=== PATIENT | male | born 1975 | race Caucasian/White ===

== ENCOUNTER 2016-11-06 06:55 | Day surgery (SDC) | payer BC ==
[~2016-11-06] VITALS: Ht 167.6 cm; Wt 80.3 kg
--- NOTE | ~2016-11-06 | OR ---
PATIENT'S NAME: MICHAEL DONAHUE [facility] AGE: 41 Y [address] ROOM: [address] [address] LOCATION: [facility] ADMIT DATE: 11/06/2016 OR/Procedure Report DISCHARGE DATE: FAMILY PHYSICIAN: Nimco Everett APRN ATTENDING PHYSICIAN: Jose Langford SURGEON: Jose Langford MD [employer] OPERATOR: DATE OF PROCEDURE: 11/06/2016 PREOPERATIVE DIAGNOSES: 1. C4-C5 disk herniation. 2. C5-C6 disc herniation. POSTOPERATIVE DIAGNOSES: 1. C4-C5 disk herniation. 2. C5-C6 disc herniation. OPERATION PROPOSED AND PERFORMED: 1. C4-C5 microdiskectomy. 2. C5-C6 microdiskectomy. 3. C4-C5 fusion. 4. C5-C6 fusion. 5. Allografts. 6. Instrumentation/plating using the Inion absorbable plate. 7. Microscope. 8. Fluoroscopy with interpretation. DESCRIPTION OF PROCEDURE: Under general anesthesia, the patient was positioned supine. The neck was slightly extended and the neck and upper chest were prepped and draped in the usual fashion. Next, a curvilinear incision was carried out extending from the anterior border of the sternomastoid muscle to the midline. The platysma was incised along this line. We then continued our dissection in the plane between the sternomastoid muscle and the strap muscles working medial to the carotid sheath and retracting the strap muscles, esophagus, and trachea away from the midline. This got us to the prevertebral fascia, which we cauterized and incised getting us to the vertebral bodies and disc spaces. Next, two spinal needles were placed in adjacent disc spaces. Fluoroscopy was then brought in with the aid of the fluoroscopy. We were able to determine that we were at the C5-C6 and C6-C7 level, removed the needle at the C6-C7 level, put it out at the C4- C5 level. What we thought was the C4-C5 level and with fluoroscopy, we were able to determine that this was the correct level. The C4-C5 and C5-C6 levels were marked by making incisions into the disc spaces. Next, the longus colli muscles were dissected away from their attachments to the vertebral bodies and the golf course designer self-retaining retractor was then used for retraction. Next, PATIENT'S NAME: MICHAEL DONAHUE [facility] AGE: 41 Y [address] ROOM: [address] [address] LOCATION: [facility] ADMIT DATE: 11/06/2016 OR/Procedure Report DISCHARGE DATE: FAMILY PHYSICIAN: Nimco Everett APRN ATTENDING PHYSICIAN: Jose Langford the distraction rods were then screwed on the C4, C5, and C6 vertebral bodies. The incision into the disc spaces were then lengthened and we took out as much disc as we could grossly. Next, the microscope was brought in. Prior to bringing the microscope, we went ahead and distracted the C5-C6 disc space and with the aid of the microscope, we completely removed the disk, removed the cartilaginous endplates, and also the posterior longitudinal ligament thus exposing the dura. There was no free fragment of disk material extruded, however, there were prominent osteophytes, which we removed using the Kerrison rongeur's. After this was done, we put in a piece of Gelfoam soaked in thrombin. The distraction was released. We then paid attention to the C5-C6 level. We carried out a similar procedure at this level and the findings were similar and after this had been done at the C5-C6 level, we went ahead and used the allograft sizer to get the appropriate size graft and put in a 7 mm height allograft, which we tapped into now empty disc space after obtaining hemostasis by using the Gelfoam and patties soaked in thrombin. Next, similar thing was then done with the C4-C5 level, distracted the disk space, measured the disc height and used the 6 mm allograft for this level. After that was done, the distraction was released. The distraction rods were removed. Pieces of bone wax were used to clog the holes thus created. Next, the soft tissue was then dissected away from the anterior-inferior as well as the anterior-superior and the anterior portions of the C4, C6, and C5 vertebral bodies respectively and having done that, the small anterior osteophytes were shaved off and we then used the inion template to measure the length of the inion plate that we needed. Having achieved that, we then put the plate in warm sterile saline and we were able to put a little bit of lordosis on the plate this way, was then plated anterior to the vertebral bodies. Plate holding pins were then used to hold the plate in position, one was in the middle over the C5 vertebral body. The other one was over the C4 vertebral body. Next, using double-barrel guide, we started on the inferior portion over the C6 vertebral bodies with a guide. We went ahead and drilled and tapped and put in the screws through the guide and through the two holes in the plate inferiorly. Similar procedures were then carried out with the superior plates. With the superior holes, both over the C5 as well as the C4 vertebral bodies, I should point out that what we did was to drill tap, leave a tap in position, removed the plate holding pins through the guide and then drilled and tapped and put the screws in and removed the tap in the other hole to get out and then put the screws in. This was carried out at those two levels where he had the plate holding pins. After this was done, the wound was thoroughly irrigated with bacitracin irrigation. The lateral C-spine x- ray was obtained fluoroscopically and was able to see that the position of the plate was quite good as well as the position of the bone grafts. The wound was then thoroughly irrigated with bacitracin irrigation and closed in layers; first the platysma and then the skin. The patient tolerated the procedure well and was taken to the recovery room. Prior to closing the incision, we explored the wound just to make sure that there was no bleeders and there was PATIENT'S NAME: MICHAEL DONAHUE [facility] AGE: 41 Y [address] ROOM: [place] [address] LOCATION: [facility] ADMIT DATE: 11/06/2016 OR/Procedure Report DISCHARGE DATE: FAMILY PHYSICIAN: Nimco Everett APRN ATTENDING PHYSICIAN: Jose Langford none. MD BRANDY RAMOS/el /[id number] d: 11/06/167 t: 12/03/16 1609, OPERATIVE SUMMARY
[~2016-11-06 06:55] MED LIST: CELEXA40 MG PO; CIPROFLOXACIN2.5 ML OTIC; LEVOTHROID (S125 MCG PO; MELOXICAM15 MG PO; MEN'S MULTI-VI1 EACH PO; MOBIC15 MG PO; PERCOCET 5-3251 EACH PO
--- NOTE | 2016-11-06 15:51 | NUR ---
Significant Event: Pt up from PACU at 1300. VSS, CSM WNL. Neuro WNL. Preop pt complained of left upper and lower extremity pain and right foot. States it feels better now. Morphine [employer] 1mg demand 8 min lockout. Flowsheet on wall. IV intact. Up ad heath or with SBA. Voids without difficulty and ambulates in the perez. Trying to wean from BE[employer]AB[employer] to Percocet. Pt thinks he will be fine on Percocet and Flexeril. Dressing to anterior neck has moderate amt of drainage, it is marked. Will call Badejo if it increases. Pleasant and cooperative with cares. Plans to d/c home tomorrow. Follow up:
--- NOTE | 2016-11-07 02:47 | NUR ---
Significant Event: Alert and oriented. Vital signs stable. Neurochecks are WNL. Dressing to anterior neck has moderate drainage, no signficant change since beginning of shift. Voiding without difficulty. Taking PO well. CHEMICAL PROCESSING LABORER dc'd. IV SL'd. Percocet given for pain. Flexeril given at HS, plan to give again this am. Follow up: Plans to discharge home today.
[2016-11-07] MEDS ORDERED: FLEXERIL10 MG PO (14:09)
--- NOTE | 2016-11-07 16:46 | NUR ---
Patient discharged home with . Prescriptions provided and sent home with patient. New medication reviewed. Patient education on wound care and signs of infection. Return clinical appointments scheduled and verbalized to patient. Walked belongings to front door with patient and .
--- NOTE | 2016-11-07 18:11 | NUR ---
i have reviewed the charting and assessments by student nurse Elle Monzon, and am in agreement with charting and assessments for this shift.
== END 2016-11-07 14:40 | disposition disaster alternative care site (69) ==
LOC: G3N 06:55 → GSDC 06:55 → G3N 13:00 → GSDC 11-07 14:40
PROC: 0RB30ZZ Excision of Cervical Vertebral Disc, Open Approach (ICD-10-PCS; principal; 2016-11-06)
PROC: 0RG20J0 Fusion of 2 or more Cervical Vertebral Joints with Synthetic Substitute, Anterior Approach, Anterior Column, Open Approach (ICD-10-PCS; 2016-11-06)
PROC: 0RG20K0 Fusion of 2 or more Cervical Vertebral Joints with Nonautologous Tissue Substitute, Anterior Approach, Anterior Column, Open Approach (ICD-10-PCS; 2016-11-06)
DX: M50.222 Other cervical disc displacement at C5-C6 level (principal); M50.221 Other cervical disc displacement at C4-C5 level; E03.9 Hypothyroidism, unspecified; Z88.0 Allergy status to penicillin; Z87.891 Personal history of nicotine dependence; Z98.890 Other specified postprocedural states; Z79.899 Other long term (current) drug therapy; Z79.891 Long term (current) use of opiate analgesic
CPT/HCPCS: C1713; J1100; J2250; J2270; J2405; J3370; J7050; J7120